=== PATIENT | female | born 1980 | race Two or more races ===

== ENCOUNTER 2022-10-30 17:01 | Emergency (ER) | payer MEDICAID, OTHER ==
[~2022-10-30] VITALS: Ht 165.1 cm; Wt 76.5 kg
[2022-10-30] MEDS ORDERED: IBUP600T27 PO (20:52)
[2022-10-30] MEDS ORDERED: HYDR-4902 PO (20:52)
[2022-10-30 21:29] VITALS: BP 135/83
[2022-10-30] MEDS ORDERED: HYDROcodone-ACET 5/325MG TAB PO ONE (21:45)
== END 2022-10-30 21:39 | disposition home or self-care (01) ==
LOC: ER 17:03
DX: S92.331A Displaced fracture of third metatarsal bone, right foot, initial encounter for closed fracture (principal); W11.XXXA Fall on and from ladder, initial encounter; Y93.89 Activity, other specified; Y92.89 Other specified places as the place of occurrence of the external cause; Y99.8 Other external cause status
CPT/HCPCS: 29515; 73610; 73630